=== PATIENT | male | born 1955 | race Caucasian/White ===

== ENCOUNTER 2024-10-04 14:53 | Emergency (ER) | payer MEDICARE ==
[~2024-10-04] VITALS: Ht 170.2 cm; Wt 75.0 kg
[2024-10-04] VITALS (7 sets, daily range): BP systolic 102–133; BP diastolic 63–78
[2024-10-04] MEDS ORDERED: TRAMADOL HYDROC50 M1 PO (16:24)
== END 2024-10-04 16:31 | disposition home or self-care (01) ==
LOC: ED 14:53
DX: M25.562 Pain in left knee (principal); M25.561 Pain in right knee; F17.290 Nicotine dependence, other tobacco product, uncomplicated